=== PATIENT | male | born 1950 | race Caucasian/White ===

== ENCOUNTER 2025-02-16 04:34 | Observation (INO) | payer MEDICARE, OTHER ==
--- NOTE | 2025-02-16 04:42 | ERPHSYRPT ---
- History of Present Illness Source: patient, family Exam Limitations: no limitations Timing/Duration: today Severity: moderate Associated Symptoms: denies symptoms, No chest pain <ORI DIAZ - Last Filed: 02/16/25 07:04> <DIONNE HANKS - Last Filed: 02/16/25 10:14> - History of Present Illness Time Seen by Provider: 02/16/25 04:36 Physician History: This is a 74-year-old white male patient who arrives by private vehicle accompanied by his significant other and is a patient of Dr. Cordero with the initial complaint of chest pain that woke him up a short time ago. Patient was having substernal central chest pain without radiation. He asked his spouse to give him to baby aspirin and the chest pain went away. He has no chest pain at this time. However he was also found at home to have an elevated blood pressure. His initial systolic blood pressure here is 207 mmHg. He is not on any blood pressure medication. He does not have shortness of breath. He has no blurred vision. He denies headache. He is not on any medication at all at this time. (ORI DIAZ) Allergies/Adverse Reactions: No Known Allergies Allergy (Verified 02/16/25 04:49) Home Medications: No Home Meds [No Home Meds] 1 [facility] 04/06/16 [History] Travel Risk - International Travel Have you traveled outside of the country in past 3 weeks: No - Emerging Infectious Disease Are you exhibiting symptoms associated with any current EIDs: No <ORI DIAZ - Last Filed: 02/16/25 07:04> - Review of Systems Constitutional: No Symptoms Eyes: No Symptoms Ears, Nose, & Throat: No Symptoms Respiratory: No Symptoms Cardiac: Chest Pain (Prior to arrival. However, his chest pain has resolved) Abdominal/Gastrointestinal: No Symptoms Genitourinary Symptoms: No Symptoms Musculoskeletal: No Symptoms Skin: No Symptoms Neurological: No Symptoms Psychological: No Symptoms Endocrine: No Symptoms Hematologic/Lymphatic: No Symptoms Immunological/Allergic: No Symptoms All Other Systems: Reviewed and Negative <ORI DIAZ - Last Filed: 02/16/25 07:04> - Past Medical History Pertinent Past Medical History: Yes Cardiac History: No Pertinent History Respiratory History: Other Endocrine Medical History: No Pertinent History History: Renal Disease - Past Surgical History Past Surgical History: Yes Neuro Surgical History: No Pertinent History Cardiac: No Pertinent History Respiratory: No Pertinent History Gastrointestinal: Appendectomy Genitourinary: No Pertinent History Musculoskeletal: No Pertinent History Male Surgical History: No Pertinent History Other Surgical History: tonsilectomy. Ribs removed in 1976. - Social History Drug Use: none <ORI DIAZ - Last Filed: 02/16/25 07:04> - Physical Exam General Appearance: no apparent distress, alert, anxiety, thin Eye Exam: PERRL/EOMI, eyes nml inspection Ears, Nose, Throat Exam: normal ENT inspection, moist mucous membranes Neck Exam: normal inspection, non-tender, supple, full range of motion Respiratory Exam: normal breath sounds, lungs clear, airway intact, No chest tenderness, No respiratory distress Cardiovascular Exam: regular rate/rhythm, normal heart sounds, normal peripheral pulses Gastrointestinal/Abdomen Exam: soft, normal bowel sounds, No tenderness Rectal Exam: not done Back Exam: normal inspection, normal range of motion, No CVA tenderness, No ve rtebral tenderness Extremity Exam: normal inspection, normal range of motion, pelvis stable Neurologic Exam: alert, oriented x 3, cooperative, sander portable machine II-XII nml as tested, nml cerebellar function, nml station & gait, sensation nml Skin Exam: normal color, warm, dry Lymphatic Exam: No adenopathy SpO2 Interpretation: normal O2 Delivery: Room Air <ORI DIAZ - Last Filed: 02/16/25 07:04> - Nursing Vital Signs Nursing Vital Signs: Initial Vital Signs Temperature 96.7 F 02/16/25 04:38 Pulse Rate 62 02/16/25 04:38 Respiratory Rate 18 02/16/25 04:38 Blood Pressure 220/120 02/16/25 04:38 O2 Sat by Pulse Oximetry 98 02/16/25 04:38 Pain Scale Pain Intensity 0 - Course Nursing assessment & vital signs reviewed: Yes EKG Interpreted by Me: RATE (57), Sinus Rhythm, NORMAL AXIS, NORMAL INTERVALS, NORMAL QRS, Other (QTc is 407. No acute ischemia present.) <ORI DIAZ - Last Filed: 02/16/25 07:04> Ordered Tests: Active Orders 24 hr Category Date Time Status [employer] STAT Care 02/16/25 04:43 Active EKG-ER Only STAT Care 02/16/25 04:42 Active EKG-ER Only STAT Care 02/16/25 09:33 Active IV Insertion STAT Care 02/16/25 04:42 Active Pulse Oximetry (ED) STAT Care 02/16/25 04:[address] ANGIOGRAPHY NECK [CT] Stat Exams 02/16/25 07:01 Completed CTA HEAD W AND/OR WO CONTRAST [CT] Stat Exams 02/16/25 07:03 Completed HEAD WITHOUT CONTRAST [CT] Stat Exams 02/16/25 04:44 Completed CBC W DIFF Stat Lab 02/16/25 05:13 Completed CMP Stat Lab 02/16/25 05:13 Completed MAGNESIUM Stat Lab 02/16/25 05:13 Completed NT PRO BNPII Stat Lab 02/16/25 05:13 Completed TROPONIN Q4H Lab 02/16/25 05:13 Completed TROPONIN Q4H Lab 02/16/25 08:34 Completed TROPONIN Q4H Lab 02/16/25 12:45 Ordered Medication Summary Discontinued Medications Generic Name Dose Route Start Last Admin Trade Name Brendenq PRN Reason Stop Dose Admin Clonidine 0.1 mg 02/16/25 06:22 02/16/25 06:27 Clonidine Hcl 0.1 Mg Tablet PO 02/16/25 06:23 0.1 mg STAT ONE Administration Clonidine Confirm 02/16/25 06:24 Clonidine Hcl 0.1 Mg Tablet Administered 02/16/25 06:25 Dose 0.1 mg .ROUTE .STK-MED ONE Enalaprilat 1.25 mg 02/16/25 04:47 02/16/25 05:11 Enalaprilat 2.5 Mg Injection IV 02/16/25 04:48 1.25 mg STAT ONE Administration Enalaprilat Confirm 02/16/25 04:55 Enalaprilat 2.5 Mg Injection Administered 02/16/25 04:56 Dose 2.5 mg IV .STK-MED ONE Lab/Rad Data: Laboratory Result Diagrams 02/16/25 05:13 02/16/25 05:13 Laboratory Results 02/16/25 02/16/25 02/16/25 Range/Units 08:34 05:13 05:13 WBC (4.23-9.07) x10^3/uL RBC (4.63-6.08) x10^6/uL Hgb (13.7-17.5) g/dL Hct (40.1-51.0) % MCV (79.0-92.2) fL MCH (25.7-32.2) pg MCHC (32.3-36.5) g/dL RDW (11.6-14.4) % Plt Count (163-337) x10^3/uL MPV (9.4-12.4) fL Gran % (34.0-67.9) % Immature Gran % (Auto) (0.001-0.429) % Nucleat RBC Rel Count (0.00-0.2) % Eos # (Auto) (0.04-0.54) x10^3/uL Immature Gran # (Auto) (0.001-0.031) x10^3u/L Absolute Lymphs (auto) (1.32-3.57) x10^3/uL Absolute Monos (auto) (0.30-0.82) x10^3/uL Absolute Nucleated RBC (0.00-0.012) x10^3u/L Lymphocytes % (21.8-53.1) % Monocytes % (5.3-12.2) % Eosinophils % (0.8-7.0) % Basophils % (0.2-1.2) % Absolute Granulocytes (1.78-5.38) x10^3/uL Basophils # (0.01-0.08) x10^3/uL Sodium 139 (135-145) mmol/L Potassium 4.2 (3.5-5.1) mmol/L Chloride 100 (98-107) mmol/L Carbon Dioxide 26 (22-30) mmol/L Anion Gap 16.7 H (5-15) MEQ/L BUN 20 (9-20) mg/dL Creatinine 0.89 (0.66-1.25) mg/dL Estimated GFR 89.9 ML/MIN Glucose 89 (74-106) mg/dL Calcium 9.7 (8.4-10.2) mg/dL Magnesium 1.8 (1.6-2.3) mg/dL Total Bilirubin 0.50 (0.2-1.3) mg/dL AST 35 (17-59) U/L ALT 25 (0-50) U/L Alkaline Phosphatase 76 (38-126) U/L Troponin I 0.038 H* 0.018 (0.000-0.033) ng/mL NT-Pro-B Natriuret Pep 322 (<300) pg/mL Serum Total Protein 6.6 (6.3-8.2) g/dL Albumin 4.0 (3.5-5.0) g/dL 02/16/25 Range/Units 05:13 WBC 5.8 (4.23-9.07) x10^3/uL RBC 4.69 (4.63-6.08) x10^6/uL Hgb 14.4 (13.7-17.5) g/dL Hct 42.8 (40.1-51.0) % MCV 91.3 (79.0-92.2) fL MCH 30.7 (25.7-32.2) pg MCHC 33.6 (32.3-36.5) g/dL RDW 13.0 (11.6-14.4) % Plt Count 224 (163-337) x10^3/uL MPV 9.7 (9.4-12.4) fL Gran % 55.7 (34.0-67.9) % Immature Gran % (Auto) 0.3 (0.001-0.429) % Nucleat RBC Rel Count 0.0 (0.00-0.2) % Eos # (Auto) 0.13 (0.04-0.54) x10^3/uL Immature Gran # (Auto) 0.02 (0.001-0.031) x10^3u/L Absolute Lymphs (auto) 1.80 (1.32-3.57) x10^3/uL Absolute Monos (auto) 0.59 (0.30-0.82) x10^3/uL Absolute Nucleated RBC 0.00 (0.00-0.012) x10^3u/L Lymphocytes % 30.8 (21.8-53.1) % Monocytes % 10.1 (5.3-12.2) % Eosinophils % 2.2 (0.8-7.0) % Basophils % 0.9 (0.2-1.2) % Absolute Granulocytes 3.25 (1.78-5.38) x10^3/uL Basophils # 0.05 (0.01-0.08) x10^3/uL Sodium (135-145) mmol/L Potassium (3.5-5.1) mmol/L Chloride (98-107) mmol/L Carbon Dioxide (22-30) mmol/L Anion Gap (5-15) MEQ/L BUN (9-20) mg/dL Creatinine (0.66-1.25) mg/dL Estimated GFR ML/MIN Glucose (74-106) mg/dL Calcium (8.4-10.2) mg/dL Magnesium (1.6-2.3) mg/dL Total Bilirubin (0.2-1.3) mg/dL AST (17-59) U/L ALT (0-50) U/L Alkaline Phosphatase (38-126) U/L Troponin I (0.000-0.033) ng/mL NT-Pro-B Natriuret Pep (<300) pg/mL Serum Total Protein (6.3-8.2) g/dL Albumin (3.5-5.0) g/dL - Progress Progress: improved, re-examined Counseled pt/family regarding: lab results, diagnosis, need for follow-up, rad results <ORI DIAZ - Last Filed: 02/16/25 07:04> - Progress Will see patient in: hospital (observation) <DIONNE HANKS - Last Filed: 02/16/25 10:14> - Progress Progress Note: 02/16/25 04:41 My medical decision making of the assignment of moderate complexity to this patient's medical issue today is based on review of the patient's past medical history, review the patient's medication list, reviewed patient drug allergy list, history present illness and physical findings on examination. The workup in this patient includes placement of intravenous line, CBC, CMP, magnesium level, troponin level, twelve-lead EKG, CT scan of the head without contrast. Differential diagnosis includes but is not limited to acute intracranial abnormality, hypertension, electrolyte abnormalities, arrhythmia, myocardial infarction 02/16/25 06:38 I interpreted the patient's laboratory data results. Based on the laboratory data results, the patient does not have an acute, emergent medical issue. The CT scan of the head without contrast was interpreted by the radiologist and I reviewed the impression. The impression reads basal ganglia old lacunar infarcts. There is early white matter evidence of subtle abnormal area of low- attenuation in the periventricular white matter area. No acute cerebral infarction or hemorrhage. Since there is an area of abnormality in the periventricular white matter area, I will order a CT scan of the head with contrast as well as a CT angio of the neck. 02/16/25 07:04 I spoke with the patient and the patient's spouse regarding the results of the workup as well as the abnormality seen on the CT scan of the head without contrast. At this time, the patient states that he will stay in the emergency department for continued workup. I am signing out to Dr. Hanks at shift change. He will follow-up on the pending workup results and make final disposition. (ORI DIAZ) 02/16/25 08:17 I assumed care for pt at 0700 BP at this time 127/81, pt asymptomatic currently, CTA head/neck pending radiology read 02/16/25 08:40 CTA head showed: 1. 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 elsewhere there is no hemodynamically significant stenosis. 02/16/25 08:43 CTA neck showed 1. No evidence of stenosis or aneurysm. No evidence of dissection 02/16/25 09:02 I spoke w/ Dr Yu - teleneurologist, regarding pt's imaging. He states that these findings are consistent w/ a pt who has chronically elevated BP, reports that there is no need for further imaging to be performed in the acute setting, reports he can have MRI as an oupatient. He recommends starting patient on daily aspirin 81mg and atorvastatin 40mg. Recommends outpatient neurology follow up for monitoring of old infarcts. will give patient information for neurology at [facility] for outpatient follow up 02/16/25 09:34 second troponin elevated at 0.038, will order repeat ekg Heart score 4 will discuss possible admission for obs for further cp r[facility]/ hospitalist Dr Burgess 02/16/25 10:05 repeat ekg showed sinus rhythm 54bpm, some nonspecific ST abnormality that is similar to prior, qtcb 412 02/16/25 10:13 I spoke w/ Dr Burgess (hospitalist) who is willing to accept pt for observation (DIONNE HANKS) Medical Desision Making - Independent Historian Additional History obtained from: Spouse - Diagnostic Testing Diagnostic test were ordered, analyzed, and reviewed by me: Yes Radiological Interpretation: Reviewed by me, Teleradiologist Report <ORI DIAZ - Last Filed: 02/16/25 07:04> - Departure Departure Disposition: Observation Critical Care Time: Yes Critical Care Time(excluding separately billable procedures): Critical 30-74 mins (45) <ORI DIAZ - Last Filed: 02/16/25 07:04> - Departure Departure Disposition: Observation <DIONNE HANKS - Last Filed: 02/16/25 10:14> - Departure Clinical Impression: Hypertension, Abnormal CT of brain, Elevated troponin Condition: Stable Referrals: ELIE CORDERO MD [ACTIVE STAFF] - Follow up/PCP as directed
[2025-02-16] MEDS ORDERED: ENALAPRILAT 2.5 MG INJECTION IV ONE (04:55)
[2025-02-16] MEDS: ENALAPRILAT 2.5 MG INJECTION IV ONE (05:11)
[2025-02-16 05:17] LABS: Absolute Neutrophil Ct (ANC) 3.25 x10^3/uL (1.78-5.38); BASOPHIL % 0.9 % (0.2-1.2); Basophil (Absolute #) 0.05 x10^3/uL (0.01-0.08); Eosinophil % 2.2 % (0.8-7.0); Eosinophil (Absolute #) 0.13 x10^3/uL (0.04-0.54); Hematocrit 42.8 % (40.1-51.0); Hemoglobin 14.4 g/dL (13.7-17.5); IMMATURE GRAN # 0.02 x10^3u/L (0.001-0.031); IMMATURE GRAN % 0.3 % (0.001-0.429); Lymphocytes % 30.8 % (21.8-53.1); Mean Cell Volume 91.3 fL (79.0-92.2); Mean Corpuscular Hemoglobin 30.7 pg (25.7-32.2); Mean Corpuscular Hgb Concent. 33.6 g/dL (32.3-36.5); Mean Platelet Volume 9.7 fL (9.4-12.4); Monocyte (Absolute #) 0.59 x10^3/uL (0.30-0.82); Monocytes % 10.1 % (5.3-12.2); Neutrophil % 55.7 % (34.0-67.9); Platelet Count 224 x10^3/uL (163-337); Red Blood Count 4.69 x10^6/uL (4.63-6.08); White Blood Count 5.8 x10^3/uL (4.23-9.07)
[2025-02-16 05:30] LABS: ANION GAP 16.7 MEQ/L (5-15); BILIRUBIN,TOTAL 0.5 mg/dL (0.2-1.3); Calcium 9.7 mg/dL (8.4-10.2); Creatinine 1 0.89 mg/dL (0.66-1.25); EST GLOMERULAR FILTRATION RATE 89.9 ML/MIN; MAGNESIUM 1.8 mg/dL (1.6-2.3); Potassium 4.2 mmol/L (3.5-5.1); Total Protein 6.6 g/dL (6.3-8.2)
[2025-02-16 05:42] LABS: TROPONIN 0.018 ng/mL (0.000-0.033)
--- NOTE | 2025-02-16 05:45 | XRAY ---
CLINICAL HISTORY: Hypertension COMPARISON: None. TECHNIQUE: Axial non-contrast CT scan of the brain was performed from the skull base to the high parietal region. One of the following dose reduction techniques were utilized for this exam: Automated exposure control, adjustment of the mA and/or kV according to patient size, use of iterative reconstruction. CTDI: 53.92 mGy, DLP: 923.71 mGy.cm. FINDINGS: Brain Parenchyma: Bilateral hypodense infarctions are noted at the region of both basal ganglia. Evidence of a subtle abnormal area of low attenuation was noted in the periventricular white matter area. Prominent cortical sulci & both sylvian fissures. Normal attenuation of the cerebellum and brainstem. No evidence of acute infarct, hemorrhage, or mass effect. Ventricular System: Ventricles are dilated in size and normal configuration. Subarachnoid Spaces: Normal sulci and cisterns. No evidence of subarachnoid hemorrhage or extra-axial fluid collections. Cerebellum and Brainstem: Normal size and signal. No masses, lesions, or areas of abnormal signal. Orbits: Normal appearance of the globes, optic nerves, and extraocular muscles. No evidence of orbital masses or abnormal signal. Sinuses: left ethmoidal sinusitis. Clear other paranasal sinuses. Mastoid Air Cells: Clear mastoid air cells. No evidence of mastoiditis. Skull: Normal skull morphology. IMPRESSION: 1. 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 2. Early white matter ischemia. 3. Brain involitional changes. 4. No acute cerebral infarction or hemorrhage. Electronically Signed by: Coco Pugh MD. (02/16/2025 05:42:17 EDT)
[2025-02-16] MEDS ORDERED: CLONIDINE 0.1 MG TABLET ONE (06:24)
[2025-02-16] MEDS: CLONIDINE 0.1 MG TABLET PO ONE (06:27)
--- NOTE | 2025-02-16 08:29 | XRAY ---
CLINICAL HISTORY: Hypertension, abnormality CT head COMPARISON: No TECHNIQUE: Contrast enhanced thin slice CT angiography scan of the cerebral vessels was performed with intravenous contrast. Angiographic images were processed, 3D MIP images were acquired for interpretation. Contiguous axial images were obtained. Reformatted coronal and sagittal images were also reviewed. If IV contrast material had not been administered, the likelihood of detecting abnormalities relevant to the patients condition would have been substantially decreased. CT scan was performed according to ALARA (as low as reasonable achievable). FINDINGS: Bilateral internal carotid arteries show normal course, calibre and opacification in the canalicular and cavernous part. Their division into the anterior cerebral artery and middle cerebral artery is defined. A1, A2 and M1, M2 segments are normal on both the sides. 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 Basilar artery shows normal course, caliber and opacification. Its division into the posterior cerebral arteries is defined. Bilateral P1 and P2 segments are normal. Visualized venous structures show normal opacification. No evidence of intracranial aneurysm or AV malformation is seen. Atherosclerotic intimal calcification of the supraclinoid segment of bilateral carotid arteries. IMPRESSION: 1. 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 elsewhere there is no hemodynamically significant stenosis. Electronically Signed by: Ollie Garcia MD. (02/16/2025 08:26:12 EDT)
--- NOTE | 2025-02-16 08:35 | XRAY ---
CLINICAL HISTORY: Hypertension; abnl area CT head COMPARISON: No TECHNIQUE: Contrast enhanced thin slice CT angiography scan of the carotid vessels was performed with intravenous contrast. Angiographic images were processed, 3D MIP images were acquired for interpretation.Contiguous axial images were obtained. Reformatted coronal and sagittal images were also reviewed. If IV contrast material had not been administered, the likelihood of detecting abnormalities relevant to the patients condition would have been substantially decreased. CT scan was performed according to ALARA (as low as reasonable achievable). FINDINGS: Included great vessels of the aortic arch are grossly unremarkable. Common carotid artery, carotid Bulb, internal carotid artery , and origin of the external carotid artery are well opacified. Vertebral arteries are well opacified. Jugular veins are well opacified. Included lung apices are grossly unremarkable. Thyroid gland appears unremarkable. IMPRESSION: 1. No evidence of stenosis or aneurysm. No evidence of dissection. Electronically Signed by: Ollie Garcia MD. (02/16/2025 08:31:06 EDT)
--- NOTE | 2025-02-16 09:09 | PCM.CONS ---
History of Present Illness - Reason for Consult Chief Complaint: Chest pain Date of Consultation Date: 02/16/25 Reason for Consult: Phone consultation for CTH findings Requesting Provider: Dr. Hanks Consulting Provider: NIGHAT WIGGINS MD History of Present Illness: ER physician requested telephone consultation only. Patient is 74 year old male who primarily came to the hospital for chest pain and elevated systolic blood pressure of more than 200. Patient got a cat scan as a part of workup and it shows small vessel disease (WM changes) and bilateral old lacunar infarcts. Angiogram studies showed right V4 90% stenosis. Rest of the extracranial or intracranial vasculature without any significant focal stenosis. Patient is not symptomatic and did not come to the ER with neurological symptoms. [facility] does not have an MRI over the weekend. Plan ASA 81 mg daily Statin 40 mg daily Ok with outpatient MRI Establish with local neurologist Communicated with Dr. Hanks I did not evaluate the patient as phone consultation was requested only to discuss the case. Medications & Allergies Home Medications: Home Medication List No Home Meds [No Home Meds] 1 [facility] 04/06/16 [History Confirmed 02/16/25] Allergies/Adverse Reactions: Allergies Allergy/AdvReac Type Severity Reaction Status Date / Time No Known Allergies Allergy Verified 02/16/25 04:49 - Past Medical History Past Medical History: Yes Neurological History: No Pertinent History ENT History: No Pertinent History Cardiac History: No Pertinent History Respiratory History: Other Endocrine Medical History: No Pertinent History Musculoskelatal History: No Pertinent History GI Medical History: No Pertinent History History: Renal Disease Pyscho-Social History: No Pertinent History Male Reproductive Disorders: No Pertinent History Comment: black lung, SHINGLES - Past Surgical History Past Surgical History: Yes Neuro Surgical History: No Pertinent History Cardiac History: No Pertinent History Respiratory Surgery: No Pertinent History GI Surgical History: Appendectomy Genitourinary Surgical Hx: No Pertinent History Musculskeletal Surgical Hx: No Pertinent History Male Surgical History: No Pertinent History Other Surgical History: tonsilectomy. Ribs removed in 1976. - Social History Smoking Status: Never smoker Exposure to second hand smoke: No Alcohol: None Drug Use: none - Social Determinants of Health Will the patient participate in the screening: Yes Do you worry about a steady place to live?: No Do you have any problems with any of the following?: No known problems In the past 12 months,have you had to go without utilities?: No Have you or anyone in your house had to go without enough: No Transportation Issues: No Has anyone in your support network made you feel unsafe?: No - Physical Exam Vital Signs: Vital Signs - 24 hr Temp Pulse Resp BP BP Pulse Ox 02/16/25 07:10 59 L 19 173/105 98 02/16/25 07:00 60 13 174/106 95 02/16/25 06:50 63 15 200/107 95 02/16/25 06:40 60 15 179/97 96 02/16/25 06:30 60 13 190/110 97 02/16/25 06:20 58 L 9 L 178/112 97 02/16/25 06:10 60 11 L 179/101 96 02/16/25 06:00 60 11 L 183/106 95 02/16/25 05:50 60 11 L 188/99 95 02/16/25 05:40 64 15 182/109 96 02/16/25 05:30 67 23 177/103 96 02/16/25 05:20 65 23 188/106 96 02/16/25 05:10 60 13 188/109 95 02/16/25 05:00 59 L 12 210/112 96 02/16/25 04:59 61 13 195/113 95 02/16/25 04:50 187/116 02/16/25 04:42 98 02/16/25 04:38 96.7 F 62 18 220/120 98 Results - Labs Lab/Micro Results: Lab Results-Last 24 Hours 02/16/25 02/16/25 02/16/25 Range/Units 05:13 05:13 05:13 WBC 5.8 (4.23-9.07) x10^3/uL RBC 4.69 (4.63-6.08) x10^6/uL Hgb 14.4 (13.7-17.5) g/dL Hct 42.8 (40.1-51.0) % MCV 91.3 (79.0-92.2) fL MCH 30.7 (25.7-32.2) pg MCHC 33.6 (32.3-36.5) g/dL RDW 13.0 (11.6-14.4) % Plt Count 224 (163-337) x10^3/uL MPV 9.7 (9.4-12.4) fL Gran % 55.7 (34.0-67.9) % Immature Gran % (Auto) 0.3 (0.001-0.429) % Nucleat RBC Rel Count 0.0 (0.00-0.2) % Eos # (Auto) 0.13 (0.04-0.54) x10^3/uL Immature Gran # (Auto) 0.02 (0.001-0.031) x10^3u/L Absolute Lymphs (auto) 1.80 (1.32-3.57) x10^3/uL Absolute Monos (auto) 0.59 (0.30-0.82) x10^3/uL Absolute Nucleated RBC 0.00 (0.00-0.012) x10^3u/L Lymphocytes % 30.8 (21.8-53.1) % Monocytes % 10.1 (5.3-12.2) % Eosinophils % 2.2 (0.8-7.0) % Basophils % 0.9 (0.2-1.2) % Absolute Granulocytes 3.25 (1.78-5.38) x10^3/uL Basophils # 0.05 (0.01-0.08) x10^3/uL Sodium 139 (135-145) mmol/L Potassium 4.2 (3.5-5.1) mmol/L Chloride 100 (98-107) mmol/L Carbon Dioxide 26 (22-30) mmol/L Anion Gap 16.7 H (5-15) MEQ/L BUN 20 (9-20) mg/dL Creatinine 0.89 (0.66-1.25) mg/dL Estimated GFR 89.9 ML/MIN Glucose 89 (74-106) mg/dL Calcium 9.7 (8.4-10.2) mg/dL Magnesium 1.8 (1.6-2.3) mg/dL Total Bilirubin 0.50 (0.2-1.3) mg/dL AST 35 (17-59) U/L ALT 25 (0-50) U/L Alkaline Phosphatase 76 (38-126) U/L Troponin I 0.018 (0.000-0.033) ng/mL NT-Pro-B Natriuret Pep 322 (<300) pg/mL Serum Total Protein 6.6 (6.3-8.2) g/dL Albumin 4.0 (3.5-5.0) g/dL - Radiology Impressions Radiology Exams & Impressions: Radiology Procedures Category Date Time Status CT ANGIOGRAPHY NECK [CT] Stat Exams 02/16/25 07:01 Completed CTA HEAD W AND/OR WO CONTRAST [CT] Stat Exams 02/16/25 07:03 Completed HEAD WITHOUT CONTRAST [CT] Stat Exams 02/16/25 04:44 Completed
--- NOTE | 2025-02-16 11:25 | PCM.HP ---
History of Present Illness - Chief Complaint Chief Complaint: Chest pain Date: 02/16/25 History of Present Illness: is a 74 year old male. He arrived today to ER by private vehicle, accompanied by his significant other, with an initial complaint of substernal central chest pain that woke him up a short time ago. The pain did not radiate and resolved after taking two baby aspirin given by his spouse. He is currently pain-free but was found to have elevated blood pressure at home, with an initial systolic reading of 207 mmHg upon arrival. He is not on any blood pressure medication and has no associated symptoms such as shortness of breath, blurred vision, or headache. 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 He reports no side effects from lisinopril in the past, and it will be restarted. He denies current CP, SOB, abd. pain, N/V/D, or edema. - Review of Systems Constitutional: No Fever, No Chills Eyes: No Symptoms Ears, Nose, & Throat: No Symptoms Respiratory: No Cough, No Short Of Breath Cardiac: Chest Pain, No Edema, No Syncope Abdominal/Gastrointestinal: No Abdominal Pain, No Nausea, No Vomiting, No Diarrhea Genitourinary Symptoms: No Dysuria Musculoskeletal: No Back Pain, No Neck Pain Skin: No Rash Neurological: No Dizziness, No Focal Weakness, No Sensory Changes Psychological: No Symptoms Endocrine: No Symptoms Hematologic/Lymphatic: No Symptoms Immunological/Allergic: No Symptoms Medications & Allergies Home Medications: Home Medication List No Home Meds [No Home Meds] 1 harman KRISTA 04/06/16 [History Confirmed 02/16/25] Allergies/Adverse Reactions: Allergies Allergy/AdvReac Type Severity Reaction Status Date / Time No Known Allergies Allergy Verified 02/16/25 04:49 - Past Medical History Past Medical History: Yes Neurological History: No Pertinent History ENT History: No Pertinent History Cardiac History: No Pertinent History Respiratory History: Other Endocrine Medical History: No Pertinent History Musculoskelatal History: No Pertinent History GI Medical History: No Pertinent History History: Renal Disease Pyscho-Social History: No Pertinent History Male Reproductive Disorders: No Pertinent History Comment: black lung, SHINGLES - Past Surgical History Past Surgical History: Yes Neuro Surgical History: No Pertinent History Cardiac History: No Pertinent History Respiratory Surgery: No Pertinent History GI Surgical History: Appendectomy Genitourinary Surgical Hx: No Pertinent History Musculskeletal Surgical Hx: No Pertinent History Male Surgical History: No Pertinent History Other Surgical History: tonsilectomy. Ribs removed in 1976. Significant Family History: no pertinent family hx - Social History Smoking Status: Never smoker Exposure to second hand smoke: No Alcohol: None Drug Use: none - Social Determinants of Health Will the patient participate in the screening: Yes Do you worry about a steady place to live?: No Do you have any problems with any of the following?: No known problems In the past 12 months,have you had to go without utilities?: No Have you or anyone in your house had to go without enough: No Transportation Issues: No Has anyone in your support network made you feel unsafe?: No - Physical Exam Vital Signs: Vital Signs - 24 hr Temp Pulse Resp BP BP Pulse Ox 02/16/25 11:17 97.6 F 60 16 170/83 95 02/16/25 10:40 64 16 153/91 96 02/16/25 10:30 65 15 153/98 97 02/16/25 10:20 64 13 152/104 02/16/25 10:10 66 14 157/90 02/16/25 10:00 57 L 13 154/99 97 02/16/25 09:50 56 L 13 158/99 97 02/16/25 09:40 57 L 17 160/95 97 02/16/25 09:30 58 L 25 H 168/101 98 02/16/25 09:20 58 L 10 L 157/99 98 02/16/25 09:10 56 L 13 141/93 96 02/16/25 09:00 59 L 12 149/83 96 02/16/25 08:50 57 L 13 130/86 96 02/16/25 08:40 63 16 138/91 95 02/16/25 08:21 59 L 11 L 145/83 95 02/16/25 08:10 56 L 14 127/81 96 02/16/25 08:00 57 L 13 135/83 96 02/16/25 07:50 57 L 13 152/95 96 02/16/25 07:48 56 L 13 144/88 96 02/16/25 07:10 59 L 19 173/105 98 02/16/25 07:00 60 13 174/106 95 02/16/25 06:50 63 15 200/107 95 02/16/25 06:40 60 15 179/97 96 02/16/25 06:30 60 13 190/110 97 02/16/25 06:20 58 L 9 L 178/112 97 02/16/25 06:10 60 11 L 179/101 96 02/16/25 06:00 60 11 L 183/106 95 02/16/25 05:50 60 11 L 188/99 95 02/16/25 05:40 64 15 182/109 96 02/16/25 05:30 67 23 177/103 96 02/16/25 05:20 65 23 188/106 96 02/16/25 05:10 60 13 188/109 95 02/16/25 05:00 59 L 12 210/112 96 02/16/25 04:59 61 13 195/113 95 02/16/25 04:50 187/116 02/16/25 04:42 98 02/16/25 04:38 96.7 F 62 18 220/120 98 General Appearance: no apparent distress, alert Neurologic Exam: alert, oriented x 3, cooperative, normal mood/affect, nml cerebellar function, nml station & gait, sensation nml, No motor deficits Eye Exam: PERRL/EOMI, eyes nml inspection Ears, Nose, Throat Exam: normal ENT inspection, TMs normal, pharynx normal, moist mucous membranes Neck Exam: normal inspection, non-tender, supple, full range of motion Respiratory Exam: normal breath sounds, lungs clear, No respiratory distress Cardiovascular Exam: regular rate/rhythm, normal heart sounds, normal peripheral pulses Gastrointestinal/Abdomen Exam: soft, normal bowel sounds, No tenderness, No mass Back Exam: normal inspection, normal range of motion, No CVA tenderness, No vertebral tenderness Extremity Exam: normal inspection, normal range of motion, pelvis stable Skin Exam: normal color, warm, dry, No rash Lymphatic Exam: No adenopathy Results - Labs Lab/Micro Results: Lab Results-Last 24 Hours 02/16/25 02/16/25 02/16/25 Range/Units 05:13 05:13 05:13 WBC 5.8 (4.23-9.07) x10^3/uL RBC 4.69 (4.63-6.08) x10^6/uL Hgb 14.4 (13.7-17.5) g/dL Hct 42.8 (40.1-51.0) % MCV 91.3 (79.0-92.2) fL MCH 30.7 (25.7-32.2) pg MCHC 33.6 (32.3-36.5) g/dL RDW 13.0 (11.6-14.4) % Plt Count 224 (163-337) x10^3/uL MPV 9.7 (9.4-12.4) fL Gran % 55.7 (34.0-67.9) % Immature Gran % (Auto) 0.3 (0.001-0.429) % Nucleat RBC Rel Count 0.0 (0.00-0.2) % Eos # (Auto) 0.13 (0.04-0.54) x10^3/uL Immature Gran # (Auto) 0.02 (0.001-0.031) x10^3u/L Absolute Lymphs (auto) 1.80 (1.32-3.57) x10^3/uL Absolute Monos (auto) 0.59 (0.30-0.82) x10^3/uL Absolute Nucleated RBC 0.00 (0.00-0.012) x10^3u/L Lymphocytes % 30.8 (21.8-53.1) % Monocytes % 10.1 (5.3-12.2) % Eosinophils % 2.2 (0.8-7.0) % Basophils % 0.9 (0.2-1.2) % Absolute Granulocytes 3.25 (1.78-5.38) x10^3/uL Basophils # 0.05 (0.01-0.08) x10^3/uL Sodium 139 (135-145) mmol/L Potassium 4.2 (3.5-5.1) mmol/L Chloride 100 (98-107) mmol/L Carbon Dioxide 26 (22-30) mmol/L Anion Gap 16.7 H (5-15) MEQ/L BUN 20 (9-20) mg/dL Creatinine 0.89 (0.66-1.25) mg/dL Estimated GFR 89.9 ML/MIN Glucose 89 (74-106) mg/dL Calcium 9.7 (8.4-10.2) mg/dL Magnesium 1.8 (1.6-2.3) mg/dL Total Bilirubin 0.50 (0.2-1.3) mg/dL AST 35 (17-59) U/L ALT 25 (0-50) U/L Alkaline Phosphatase 76 (38-126) U/L Troponin I 0.018 (0.000-0.033) ng/mL NT-Pro-B Natriuret Pep 322 (<300) pg/mL Serum Total Protein 6.6 (6.3-8.2) g/dL Albumin 4.0 (3.5-5.0) g/dL 02/16/25 Range/Units 08:34 WBC (4.23-9.07) x10^3/uL RBC (4.63-6.08) x10^6/uL Hgb (13.7-17.5) g/dL Hct (40.1-51.0) % MCV (79.0-92.2) fL MCH (25.7-32.2) pg MCHC (32.3-36.5) g/dL RDW (11.6-14.4) % Plt Count (163-337) x10^3/uL MPV (9.4-12.4) fL Gran % (34.0-67.9) % Immature Gran % (Auto) (0.001-0.429) % Nucleat RBC Rel Count (0.00-0.2) % Eos # (Auto) (0.04-0.54) x10^3/uL Immature Gran # (Auto) (0.001-0.031) x10^3u/L Absolute Lymphs (auto) (1.32-3.57) x10^3/uL Absolute Monos (auto) (0.30-0.82) x10^3/uL Absolute Nucleated RBC (0.00-0.012) x10^3u/L Lymphocytes % (21.8-53.1) % Monocytes % (5.3-12.2) % Eosinophils % (0.8-7.0) % Basophils % (0.2-1.2) % Absolute Granulocytes (1.78-5.38) x10^3/uL Basophils # (0.01-0.08) x10^3/uL Sodium (135-145) mmol/L Potassium (3.5-5.1) mmol/L Chloride (98-107) mmol/L Carbon Dioxide (22-30) mmol/L Anion Gap (5-15) MEQ/L BUN (9-20) mg/dL Creatinine (0.66-1.25) mg/dL Estimated GFR ML/MIN Glucose (74-106) mg/dL Calcium (8.4-10.2) mg/dL Magnesium (1.6-2.3) mg/dL Total Bilirubin (0.2-1.3) mg/dL AST (17-59) U/L ALT (0-50) U/L Alkaline Phosphatase (38-126) U/L Troponin I 0.038 H* (0.000-0.033) ng/mL NT-Pro-B Natriuret Pep (<300) pg/mL Serum Total Protein (6.3-8.2) g/dL Albumin (3.5-5.0) g/dL - Radiology Impressions Radiology Exams & Impressions: Radiology Procedures Category Date Time Status CT ANGIOGRAPHY NECK [CT] Stat Exams 02/16/25 07:01 Completed CTA HEAD W AND/OR WO CONTRAST [CT] Stat Exams 02/16/25 07:03 Completed HEAD WITHOUT CONTRAST [CT] Stat Exams 02/16/25 04:44 Completed Assessment/Plan (1) Chest pain Current Visit: Yes Status: Acute Assessment & Plan: - Pt took ASA prior to arrival today - Tele - Trops x3 trend - EKG - No current CP - Morphine PRN - Nitro PRN - ASA daily - Will need OP cardiology consult at D/C- will need OP echo as unable to do on the weekend. - Does not have a PCP and would like appointment with Dr. Roman at D/C. - O2 PRN Code(s): R07.9 - CHEST PAIN, UNSPECIFIED (2) Elevated troponin Current Visit: Yes Status: Acute Assessment & Plan: - Trop 0.018, 0.038- 2nd trop elevated - Trend Trops - Tele - Consider Echo if here Tuesday. - unable to do on the weekends Code(s): R79.89 - OTHER SPECIFIED ABNORMAL FINDINGS OF BLOOD CHEMISTRY (3) Abnormal CT of brain Current Visit: Yes Status: Acute Assessment & Plan: - CTA head IMPRESSION: 1. 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 elsewhere there is no hemodynamically significant stenosis - CT angiography IMPRESSION: 1. No evidence of stenosis or aneurysm. No evidence of dissection - Head CT: IMPRESSION: 1. 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 2. Early white matter ischemia. 3. Brain involitional changes. 4. No acute cerebral infarction or hemorrhage. - Neurology consult by phone in ER: - Neuro recs: ASA 81 mg daily Statin 40 mg daily Ok with outpatient MRI- as MRI not available on the weekends Establish with local neurologist - Tele Code(s): R90.89 - OTH ABNORMAL FINDINGS ON DIAGNOSTIC IMAGING OF CNSL (4) Hypertension Current Visit: Yes Status: Acute Assessment & Plan: - Does not take BP meds OP - Clondine and Vasotec gave in ER - BP remains elevated- will start BP medication-lisinopril d/t kidney hx. - Consider beta nathaly but do not have an echo VTE:Heaprin Next of KIN: - Chelle Code status:Full D/C plan: tomorrow Code(s): I10 - ESSENTIAL (PRIMARY) HYPERTENSION Telemedicine Encounter - Telemedicine Encounter Telemedicine Encounter: "The entirety of this encounter was performed via Telemedicine" This visit was performed using real-time audio and video connection between my location and thepatients locationwith the assistance of a surrogateat the patients location. Written or verbal consent was obtained from the patient/guardian to perform this [facility]. Any patient questions regarding the telemedicine interaction were answered.
[2025-02-16] MEDS ORDERED: TYLENOL 325 MG PO PRN (11:30)
[2025-02-16] MEDS ORDERED: Zofran 4 MG/2 ML VIAL IV PRN (11:30)
[2025-02-16] MEDS ORDERED: MORPHINE SULFATE 2 MG INJ IV PRN (12:20)
[2025-02-16] MEDS ORDERED: Nitrostat 0.4 MG Tablet SL PRN (12:20)
[2025-02-16] MEDS: Zestril 10 MG PO SCH (12:52)
[2025-02-16] MEDS: ECOTRIN 81 MG PO SCH (12:52)
[2025-02-16] MEDS: hydroDIURIL 25 MG PO SCH (17:43)
[2025-02-16] MEDS: ZOCOR 20MG PO SCH (22:05)
[2025-02-16] MEDS: HEPARIN 5000 UNITS/0.5 ML (HIGH RISK MED) SQ SCH (22:05)
[2025-02-17 06:11] LABS: Hematocrit 42.7 % (40.1-51.0); Hemoglobin 14.4 g/dL (13.7-17.5); Mean Corpuscular Hemoglobin 30.7 pg (25.7-32.2); Mean Corpuscular Hgb Concent. 33.7 g/dL (32.3-36.5); Mean Platelet Volume 9.9 fL (9.4-12.4); Platelet Count 211 x10^3/uL (163-337); Red Blood Count 4.69 x10^6/uL (4.63-6.08); White Blood Count 5.2 x10^3/uL (4.23-9.07)
[2025-02-17 06:31] LABS: ANION GAP 15.3 MEQ/L (5-15); BILIRUBIN,TOTAL 0.8 mg/dL (0.2-1.3); Calcium 8.9 mg/dL (8.4-10.2); Creatinine 1 0.89 mg/dL (0.66-1.25); EST GLOMERULAR FILTRATION RATE 89.9 ML/MIN; Total Protein 6.9 g/dL (6.3-8.2)
[2025-02-17 07:21] VITALS: O2SAT 95
[2025-02-17] MEDS: Zestril 10 MG PO SCH (09:11)
[2025-02-17] MEDS ORDERED: Zestril 10 MG PO SCH (10:00)
--- NOTE | 2025-02-17 10:31 | PCM.DS ---
Discharge Summary Date of Admission: 02/16/25 10:52 Date of Discharge: 02/17/25 Admitting Physician: DIONNE LEÓN MD Primary Care Provider: NO FAMILY DOCTOR Allergies Allergies No Known Allergies Allergy (Verified 02/16/25 04:49) Hospital Summary - Hospital Course Hospital Course: 02/16/25 is a 74 year old male. He arrived today to ER by private vehicle, accompanied by his significant other, with an initial complaint of substernal central chest pain that woke him up a short time ago. The pain did not radiate and resolved after taking two baby aspirin given by his spouse. He is currently pain-free but was found to have elevated blood pressure at home, with an initial systolic reading of 207 mmHg upon arrival. He is not on any blood pressure medication and has no associated symptoms such as shortness of breath, blurred vision, or headache. 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 He reports no side effects from lisinopril in the past, and it will be restarted. He denies current CP, SOB, abd. pain, N/V/D, or edema. 02/17/25 Pt resting in bed. He has not had any CP since admission. 1st trop normal, 2nd trop slightly elevated likely 2;2 HTN, 3rd trop normal. He is ready to d/c home today. He will need to establish with a PCP. He will also need OP referral by PCP to cardiology and neurology OP for follow up. Will continue ASA and statin as recommended by neurology. Will continue Lisinopril / HCTZ for HTN. Discussed obtaining a home BP cuff and documenting home BP readings and keep a log to take to PCP. He denies any further concerns at this time. - Vitals & Intake/Output Vital Signs: Vital Signs Temperature 98 F 02/17/25 07:21 Pulse Rate 63 02/17/25 07:21 Respiratory Rate 21 02/17/25 07:21 Blood Pressure 150/85 02/17/25 07:21 O2 Sat by Pulse Oximetry 95 02/17/25 07:21 Intake & Output: Intake & Output 02/14/25 02/15/25 02/16/25 02/17/25 11:59 11:59 11:59 11:59 Intake Total 240 1520 Output Total 2700 Balance 240 -1180 Weight 79.8 kg 79.5 kg - Lab Result Diagrams: 02/17/25 05:25 02/17/25 05:25 Lab Results-Last 24 Hrs: Lab Results-Last 24 Hours 02/16/25 02/17/25 02/17/25 Range/Units 12:40 05:25 05:25 WBC 5.2 (4.23-9.07) x10^3/uL RBC 4.69 (4.63-6.08) x10^6/uL Hgb 14.4 (13.7-17.5) g/dL Hct 42.7 (40.1-51.0) % MCV 91.0 (79.0-92.2) fL MCH 30.7 (25.7-32.2) pg MCHC 33.7 (32.3-36.5) g/dL RDW 13.0 (11.6-14.4) % Plt Count 211 (163-337) x10^3/uL MPV 9.9 (9.4-12.4) fL Sodium 135 (135-145) mmol/L Potassium 4.0 (3.5-5.1) mmol/L Chloride 100 (98-107) mmol/L Carbon Dioxide 23 (22-30) mmol/L Anion Gap 15.3 H (5-15) MEQ/L BUN 24 H (9-20) mg/dL Creatinine 0.89 (0.66-1.25) mg/dL Estimated GFR 89.9 ML/MIN Glucose 87 (74-106) mg/dL Calcium 8.9 (8.4-10.2) mg/dL Total Bilirubin 0.80 (0.2-1.3) mg/dL AST 33 (17-59) U/L ALT 20 (0-50) U/L Alkaline Phosphatase 81 (38-126) U/L Troponin I 0.020 (0.000-0.033) ng/mL Serum Total Protein 6.9 (6.3-8.2) g/dL Albumin 4.0 (3.5-5.0) g/dL Triglycerides (30-150) mg/dL Cholesterol (50-200) mg/dL LDL Cholesterol (30-100) mg/dL HDL Cholesterol (40-60) mg/dL Heart Disease Risk Ratio 02/17/25 Range/Units 05:25 WBC (4.23-9.07) x10^3/uL RBC (4.63-6.08) x10^6/uL Hgb (13.7-17.5) g/dL Hct (40.1-51.0) % MCV (79.0-92.2) fL MCH (25.7-32.2) pg MCHC (32.3-36.5) g/dL RDW (11.6-14.4) % Plt Count (163-337) x10^3/uL MPV (9.4-12.4) fL Sodium (135-145) mmol/L Potassium (3.5-5.1) mmol/L Chloride (98-107) mmol/L Carbon Dioxide (22-30) mmol/L Anion Gap (5-15) MEQ/L BUN (9-20) mg/dL Creatinine (0.66-1.25) mg/dL Estimated GFR ML/MIN Glucose (74-106) mg/dL Calcium (8.4-10.2) mg/dL Total Bilirubin (0.2-1.3) mg/dL AST (17-59) U/L ALT (0-50) U/L Alkaline Phosphatase (38-126) U/L Troponin I (0.000-0.033) ng/mL Serum Total Protein (6.3-8.2) g/dL Albumin (3.5-5.0) g/dL Triglycerides 93 (30-150) mg/dL Cholesterol 184 (50-200) mg/dL LDL Cholesterol 122 H (30-100) mg/dL HDL Cholesterol 31 L (40-60) mg/dL Heart Disease Risk Ratio 6.0 - Radiology Exams Ordered Rad Exams-Entire Visit: Radiology Procedures Category Date Time Status CT ANGIOGRAPHY NECK [CT] Stat Exams 02/16/25 07:01 Completed CTA HEAD W AND/OR WO CONTRAST [CT] Stat Exams 02/16/25 07:03 Completed HEAD WITHOUT CONTRAST [CT] Stat Exams 02/16/25 04:44 Completed Discharge Exam General Appearance: no apparent distress, alert Neurologic Exam: alert, oriented x 3, cooperative, normal mood/affect, nml cerebellar function, sensation nml, No motor deficits Eye Exam: PERRL, EOMI, eyes nml inspection Ears, Nose, Throat Exam: normal ENT inspection, pharynx normal, moist mucous membranes Neck Exam: normal inspection, non-tender, supple, full range of motion Respiratory Exam: normal breath sounds, lungs clear, No respiratory distress Cardiovascular Exam: regular rate/rhythm, normal heart sounds Gastrointestinal/Abdomen Exam: soft, No tenderness, No mass Male Genitalia Exam: deferred Rectal Exam: deferred Back Exam: normal inspection, normal range of motion, No CVA tenderness, No vertebral tenderness Extremity Exam: normal inspection, normal range of motion Skin Exam: normal color, warm, dry Final Diagnosis/Problem List - Final Discharge Diagnosis/Problem (1) Chest pain Current Visit: Yes Status: Acute Code(s): R07.9 - CHEST PAIN, UNSPECIFIED (2) Elevated troponin Current Visit: Yes Status: Acute Code(s): R79.89 - OTHER SPECIFIED ABNORMAL FINDINGS OF BLOOD CHEMISTRY (3) Abnormal CT of brain Current Visit: Yes Status: Acute Code(s): R90.89 - OTH ABNORMAL FINDINGS ON DIAGNOSTIC IMAGING OF CNSL (4) Hypertension Current Visit: Yes Status: Acute Assessment & Plan: (1) Chest pain Current Visit: Yes Status: Acute Assessment & Plan: - Pt took ASA prior to arrival today - Tele - Trops x3 trend - EKG - No current CP - Morphine PRN - Nitro PRN - ASA daily - Will need OP cardiology consult at D/C- will need OP echo as unable to do on the weekend. - Does not have a PCP and would like appointment with Dr. Yost at D/C. - O2 PRN 02/17 - 2nd trop slightly elevated, 3rd trop WNL - Will need to f/U OP with cardiology - Denies any CP since admission - Lipid panel reviewed- LDL 122, HDL 31 Code(s): R07.9 - CHEST PAIN, UNSPECIFIED (2) Elevated troponin Current Visit: Yes Status: Acute Assessment & Plan: - Trop 0.018, 0.038- 2nd trop elevated, 3rd trop normal - Trend Trops - Tele - Consider Echo if here Tuesday. - unable to do on the weekends 02/17 - F/U with cardiology OP Code(s): R79.89 - OTHER SPECIFIED ABNORMAL FINDINGS OF BLOOD CHEMISTRY (3) Abnormal CT of brain Current Visit: Yes Status: Acute Assessment & Plan: - CTA head IMPRESSION: 1. 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 elsewhere there is no hemodynamically significant stenosis - CT angiography IMPRESSION: 1. No evidence of stenosis or aneurysm. No evidence of dissection - Head CT: IMPRESSION: 1. 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 2. Early white matter ischemia. 3. Brain involitional changes. 4. No acute cerebral infarction or hemorrhage. - Neurology consult by phone in ER: - Neuro recs: ASA 81 mg daily Statin 40 mg daily Ok with outpatient MRI- as MRI not available on the weekends Establish with local neurologist - Tele Code(s): R90.89 - OT ABNORMAL FINDINGS ON DIAGNOSTIC IMAGING OF CNSL (4) Hypertension Current Visit: Yes Status: Acute Assessment & Plan: - Does not take BP meds OP - Clondine and Vasotec gave in ER - BP remains elevated- will start BP medication-lisinopril d/t kidney hx. - Consider beta nathaly but do not have an echo 02/17 - F/U with cardiology OP as will need stress test. - Lisonipril increased - Continue lisinopril /HCTZ Code(s): I10 - ESSENTIAL (PRIMARY) HYPERTENSION - Discharge Discharge Date: 02/17/25 Disposition: Home, Self-Care Condition: Stable Prescriptions: New Aspirin EC 81 mg [Ecotrin 81 mg] 81 mg PO DAILY 30 Days #30 tablet Simvastatin 20Mg [Zocor 20Mg] 40 mg PO HS 30 Days #30 tablet Continue No Home Meds [No Home Meds] 1 ea UD Additional Instructions: Will need to make appointment with Dr. Yost then will need referral by PCP to cardiology and neurology for follow up and further evaluation and testing. Obtain a BP cuff, keep a log of daily BP readings. Take to your PCP appointment. Come to the ER if you have Chest pain again. Follow up with: NESHA YOST DO [ACTIVE STAFF] -
[2025-02-17 11:53] VITALS: BP 158/76; PULSE 62; RESP 18; TEMP 98.4
== END 2025-02-17 11:45 | disposition home or self-care (01) ==
LOC: ED 04:34 → MED SURG 10:52
PROVIDERS: ADMIT Internal Medicine; ATTEND Internal Medicine
DX: R07.9 Chest pain, unspecified (principal); R79.89 Other specified abnormal findings of blood chemistry; R90.89 Other abnormal findings on diagnostic imaging of central nervous system; I10 Essential (primary) hypertension
CPT/HCPCS: 36415; 70450; 70496; 70498; 80053; 80061; 83721; 83735; 83880; 84484; 85025; 85027; 93005; 93041; 93268; 94760; 96374; 99291; G0378; Q3014; 99285; J1644; A9270-GY